=== PATIENT | female | born 1965 | race Caucasian/White ===

== ENCOUNTER → 2024-06-09 | Outpatient (CLI) | payer OTHER ==
[~2024-06-09] MED LIST: LOMAIRA8 MG PO; NAPR220 PO; Phentermine HCl30 MG PO
== END ==
LOC: LAB SHORT 14:55 → LAB 14:55
DX: L02.91 Cutaneous abscess, unspecified (principal)
CPT/HCPCS: 87070; 87077; 87147; 87186; 87205

== ENCOUNTER → 2024-09-30 | Outpatient (CLI) | payer OTHER ==
[~2024-09-30] MED LIST changes: +Acetaminophen325 M1 PO; +GABA300 PO; +HYDR1TAB94 PO; +IBUP600 PO; +IBUP800 PO; +METF500 PO; +MUPIROCIN15 GM; +SKYRIZI150 MG/1 M SQ
== END ==
LOC: LAB SHORT 15:06 → LAB 15:06
DX: M79.672 Pain in left foot (principal)
CPT/HCPCS: 84550

== ENCOUNTER 2024-10-02 07:24 | Day surgery (SDC) | payer OTHER ==
[~2024-10-02] VITALS: Ht 162.6 cm; Wt 84.4 kg
[2024-10-02] VITALS (8 sets, daily range): BP systolic 103–128; BP diastolic 57–67
[~2024-10-02 07:24] MED LIST changes: +CeFAZolin Sodium 2,000 MG in NS 100 ML IV SCH; -HYDR1TAB94 PO; -IBUP800 PO; +Lactated Ringer's 1,000 ML IV SCH
[2024-10-02] MEDS ORDERED: IBUP800 PO (07:38)
[2024-10-02] MEDS ORDERED: FentaNYL Citrate 50 MCG/ML 2 ML Injection ONE (08:03)
[2024-10-02] MEDS ORDERED: propofoL 20 ML IV ONE (08:03)
[2024-10-02] MEDS ORDERED: Rocuronium Bromide 10 MG/ML 5ML Injection IV ONE ×2 (08:05→09:29)
[2024-10-02] MEDS ORDERED: Albuterol 2.5 MG/3 ML VIAL INH PRN (08:25)
[2024-10-02] MEDS ORDERED: Ondansetron HCl 2 MG / ML 2ML Vial IV PRN ×2 (08:25→10:40)
[2024-10-02] MEDS ORDERED: FentaNYL Citrate 50 MCG/ML 2 ML Injection IV PRN ×3 (08:25→10:40)
[2024-10-02] MEDS ORDERED: Droperidol 5 mg/2 ml Vial IV PRN (08:25)
[2024-10-02] MEDS ORDERED: HYDROmorphone HCl/Pf 1MG SYR IV PRN ×2 (08:25→08:30)
[2024-10-02] MEDS ORDERED: Labetalol HCL 5 MG/ML 4ML Injection (Single Dose) IV PRN (08:25)
[2024-10-02] MEDS ORDERED: EpiNEPhrine 1 MG/1 ML 1ML Vial ONE (08:30)
[2024-10-02] MEDS ORDERED: Bupivacaine 0.5% HCl 5 MG/ML 30MLVIAL ONE (08:30)
[2024-10-02] MEDS ORDERED: HydrALAZINE HCl 20 MG / ML 1ML Vial IV PRN (08:30)
[2024-10-02] MEDS ORDERED: ePHEDrine Sulfate 50 MG/ML 1ML Injection IV PRN (08:30)
[2024-10-02] MEDS ORDERED: ePHEDrine Sulfate 50 MG/ML 1ML Injection ONE (09:10)
[2024-10-02] MEDS ORDERED: Dexamethasone Sod Phos 10 MG/ML 1ML VIAL ONE (09:17)
[2024-10-02] MEDS ORDERED: Ondansetron HCl 2 MG / ML 2ML Vial ONE (09:17)
[2024-10-02] MEDS ORDERED: HYDROmorphone HCl/Pf 1MG SYR ONE (10:23)
[2024-10-02] MEDS ORDERED: Sugammadex Sodium 200 MG/2ML SDV (100 MG/ML) ONE (10:24)
[2024-10-02] MEDS ORDERED: Lactated Ringer's 1,000 ML IV SCH (10:40)
[2024-10-02] MEDS ORDERED: HYDROcodone 10-APAP 325 TAB PO PRN (10:40)
[2024-10-02] MEDS ORDERED: Naloxone HCl 0.4MG / ML 1ML Vial IV PRN (10:40)
[2024-10-02] MEDS ORDERED: FLU VACC TS2024-25(6MOS UP)/PF 45 MCG/0.5 ML SYRINGE IM PRN (10:40)
[2024-10-02] MEDS ORDERED: Ketorolac Tromethamine 30mg Vial ONE (10:44)
[2024-10-02] MEDS ORDERED: Acetaminophen 325 MG TABLET PO PRN (10:45)
[2024-10-02] MEDS ORDERED: Simethicone 80 MG Chew PO PRN (10:45)
[2024-10-02] MEDS ORDERED: Ibuprofen 400 MG Tab PO PRN (10:45)
[2024-10-02] MEDS ORDERED: DiphenhydrAMINE HCL 25 MG Cap PO PRN (10:45)
[2024-10-02] MEDS ORDERED: Ketorolac Tromethamine 30mg Vial IV SCH (12:00)
[2024-10-02] MEDS ORDERED: HYDR1TAB94 PO (12:02)
[2024-10-02 13:51] LABS: BASOPHILS ABSOLUTE AUTO 0.02 K/mm3 (0.00-0.23); BASOPHILS PERCENT AUTO 0 % (0-2); EOSINOPHILS PERCENT AUTO 0 % (0-6); Hematocrit 36.6 % (33.0-51.0); Hemoglobin 12.2 g/dL (11.5-16.0); IMMATURE GRAN ABSOLUTE AUTO 0.06 K/mm3 (0.00-0.10); IMMATURE GRAN PERCENT AUTO 1 % (0-1); LYMPHOCYTES ABSOLUTE AUTO 0.78 K/mm3 (0.84-5.20); LYMPHOCYTES PERCENT AUTO 6 % (21-46); MONOCYTES PERCENT AUTO 1 % (4-13); Mean Corpuscular HGB Conc 33.3 g/dL (31.5-36.5); Mean Corpuscular Volume 90 fL (80-100); Mean Platelet Volume 9.9 fL (9.1-12.4); NEUTROPHILS ABSOLUTE AUTO 11.53 K/mm3 (1.96-9.15); NEUTROPHILS PERCENT AUTO 92 % (41-73); Platelet Count 290 K/mm3 (150-400); RDW Coefficient Variation 13.2 % (11.7-14.2); RDW Standard Deviation 43.7 fL (35.1-46.3); Red Blood Cell Count 4.06 M/mm3 (3.80-5.20); White Blood Cell Count 12.49 K/mm3 (4.00-11.30)
--- NOTE | 2024-10-02 14:39 | NUR ---
1420- dcd to home with via w/c in private car
== END 2024-10-02 14:18 | disposition home or self-care (01) ==
LOC: ORSCMMR 07:24 → ORD 07:30 → ORSCMMR 07:30 → ORD 09:30 → BC 11:31 → ORSCMMR 14:18
PROVIDERS: Obstetrics & Gynecology
PROC: 0UT9FZZ Resection of Uterus, Via Natural or Artificial Opening With Percutaneous Endoscopic Assistance (ICD-10-PCS; principal; 2024-10-02 09:00)
PROC: 0UT6FZZ Resection of Left Fallopian Tube, Via Natural or Artificial Opening With Percutaneous Endoscopic Assistance (ICD-10-PCS; principal; 2024-10-02 09:00)
DX: N93.8 Other specified abnormal uterine and vaginal bleeding (principal); Z85.9 Personal history of malignant neoplasm, unspecified; N72 Inflammatory disease of cervix uteri; N84.0 Polyp of corpus uteri; N80.03 Adenomyosis of the uterus; D25.9 Leiomyoma of uterus, unspecified
CPT/HCPCS: 36415; 85025; 86850; 86900; 86901; 88307; A9270; J0171; J0690; J1100; J1171; J1885; J2405; J2704; J3010; J7120

== ENCOUNTER 2024-10-13 16:37 | Inpatient (IN) | payer OTHER ==
[~2024-10-13] VITALS: Ht 162.6 cm; Wt 83.7 kg
[~2024-10-13 16:37] MED LIST changes: -AMOX-CLAV 500-1 EAC5 PO; -BENADRYL25 MG PO; -CORTISONE60 GM TOP; -Calcium Carbon500 MG PO; -OMEP20ER PO; -OXYC5 PO; -VISBIOME 112.51 EACH PO
[2024-10-13 17:10] LABS: BASOPHILS PERCENT AUTO 0 % (0-2); EOSINOPHILS ABSOLUTE AUTO 0.09 K/mm3 (0.00-0.68); EOSINOPHILS PERCENT AUTO 0 % (0-6); Hematocrit 36.4 % (33.0-51.0); Hemoglobin 12.5 g/dL (11.5-16.0); IMMATURE GRAN ABSOLUTE AUTO 0.84 K/mm3 (0.00-0.10); IMMATURE GRAN PERCENT AUTO 4 % (0-1); LYMPHOCYTES ABSOLUTE AUTO 1.64 K/mm3 (0.84-5.20); LYMPHOCYTES PERCENT AUTO 7 % (21-46); MONOCYTES ABSOLUTE AUTO 1.11 K/mm3 (0.16-1.47); MONOCYTES PERCENT AUTO 5 % (4-13); Mean Corpuscular HGB 30.1 pg (26.0-34.0); Mean Corpuscular HGB Conc 34.3 g/dL (31.5-36.5); Mean Corpuscular Volume 88 fL (80-100); Mean Platelet Volume 8.6 fL (9.1-12.4); NEUTROPHILS ABSOLUTE AUTO 19.52 K/mm3 (1.96-9.15); NEUTROPHILS PERCENT AUTO 84 % (41-73); Platelet Count 506 K/mm3 (150-400); RDW Coefficient Variation 14.6 % (11.7-14.2); RDW Standard Deviation 47.4 fL (35.1-46.3); Red Blood Cell Count 4.15 M/mm3 (3.80-5.20)
[2024-10-13 17:35] LABS: Albumin, Blood 2.7 g/dL (3.4-5.0); Albumin/Globulin Ratio 0.5 (0.8-1.8); Bilirubin, Total 1.1 mg/dL (0.1-1.0); Bun/Creatinine Ratio 25.4 (12.0-20.0); Calcium, Blood 10.3 mg/dL (8.5-10.1); Creatinine, Blood 1.18 mg/dL (0.40-1.00); Globulin, Blood 5.5 g/dL (2.2-4.0); Total Protein, Blood 8.2 g/dL (6.4-8.2)
[2024-10-13] MEDS ORDERED: AMOX-CLAV 500-1 EAC5 PO (20:35)
[2024-10-13] MEDS ORDERED: NS 1,000 ML IV SCH ×2 (22:00→22:05)
[2024-10-13] MEDS ORDERED: FLU VACC TS2024-25(6MOS UP)/PF 45 MCG/0.5 ML SYRINGE IM ONE (22:00)
[2024-10-13] MEDS ORDERED: Ondansetron HCl 2 MG / ML 2ML Vial IV PRN (22:05)
[2024-10-13] MEDS ORDERED: NS 1,000 ML IV ONE ×2 (22:29→23:00)
[2024-10-13] MEDS ORDERED: Cefepime HCl 2,000 MG in NS 100 ML IV SCH (22:40)
[2024-10-13] MEDS ORDERED: Potassium Chloride 20 MEQ TabCR PO ONE (23:00)
--- NOTE | 2024-10-13 23:15 | NUR ---
ARRIVAL NOTE PT ARRIVED TO UNIT VIA WHEELCHAIR. A&0 x4. PT ABLE TO AMB IND c FWW. BASELINE IND WITHOUT ASSISTIVE DEVICES. PT UNABLE TO BEAR WEIGHT ON LLE R/T ABSCESS. VSS. TOLATING ORALS. AT BEDSIDE. ORIENTED TO ROOM, CALL LIGHT IN REACH, BED IN LOWEST POSITION.
[2024-10-13 23:22] VITALS: BP 131/65
[2024-10-13 23:23] LABS: Bicarbonate Venous 19.2 mmol/L (24.0-30.0); PCO2 Venous 38.5 mmHg (38-42); pH Blood Venous 7.33 (7.34-7.37)
[2024-10-13] MEDS ORDERED: Vancomycin HCL 1,500 MG in NS 250 ML IV ONE (23:45)
--- NOTE | 2024-10-14 00:07 | NUR ---
DR CONSULT DR CONSULTED R/T PT PAIN. PT REPORTS PAIN TO LLE R/T CELLULITIS. PAIN MEDS ORDERED PER EMAR.
[2024-10-14] MEDS ORDERED: Acetaminophen 325 MG TABLET PO PRN (00:10)
[2024-10-14] MEDS ORDERED: Ibuprofen 400 MG Tab PO PRN (00:10)
[2024-10-14 05:24] VITALS: BP 124/65
[2024-10-14 05:40] LABS: BASOPHILS ABSOLUTE AUTO 0.11 K/mm3 (0.00-0.23); BASOPHILS PERCENT AUTO 1 % (0-2); EOSINOPHILS ABSOLUTE AUTO 0.13 K/mm3 (0.00-0.68); EOSINOPHILS PERCENT AUTO 1 % (0-6); Hematocrit 29.3 % (33.0-51.0); Hemoglobin 9.9 g/dL (11.5-16.0); IMMATURE GRAN ABSOLUTE AUTO 0.68 K/mm3 (0.00-0.10); IMMATURE GRAN PERCENT AUTO 4 % (0-1); LYMPHOCYTES ABSOLUTE AUTO 2.05 K/mm3 (0.84-5.20); LYMPHOCYTES PERCENT AUTO 11 % (21-46); MONOCYTES ABSOLUTE AUTO 1.51 K/mm3 (0.16-1.47); MONOCYTES PERCENT AUTO 8 % (4-13); Mean Corpuscular HGB 29.7 pg (26.0-34.0); Mean Corpuscular HGB Conc 33.8 g/dL (31.5-36.5); Mean Corpuscular Volume 88 fL (80-100); Mean Platelet Volume 8.8 fL (9.1-12.4); NEUTROPHILS ABSOLUTE AUTO 13.93 K/mm3 (1.96-9.15); NEUTROPHILS PERCENT AUTO 76 % (41-73); Platelet Count 418 K/mm3 (150-400); RDW Coefficient Variation 14.9 % (11.7-14.2); RDW Standard Deviation 48.5 fL (35.1-46.3); Red Blood Cell Count 3.33 M/mm3 (3.80-5.20); White Blood Cell Count 18.41 K/mm3 (4.00-11.30)
[2024-10-14 05:54] LABS: International Normalized Ratio 1.1; Prothrombin Time Results 11.7 Sec (9.7-11.5)
[2024-10-14 06:19] LABS: Albumin, Blood 1.9 g/dL (3.4-5.0); Albumin/Globulin Ratio 0.4 (0.8-1.8); Bilirubin, Total 0.6 mg/dL (0.1-1.0); Calcium, Blood 8.8 mg/dL (8.5-10.1); Creatinine, Blood 0.87 mg/dL (0.40-1.00); Globulin, Blood 4.3 g/dL (2.2-4.0); Potassium, Blood 3.4 mmol/L (3.5-5.5)
[2024-10-14 06:21] LABS: Total Protein, Blood 6.2 g/dL (6.4-8.2)
[2024-10-14 06:33] LABS: U Amphetamine Screen Not Detected; U Barbituate Screen Not Detected; U Benzodiazapine Screen Not Detected; U Buprenorphine Screen Not Detected; U Cannabinoids Screen Not Detected; U Cocaine Screen Not Detected; U Methadone Screen Not Detected; U Methamphetamine Screen Not Detected; U Opiates Screen Not Detected; U Oxycodone Screen Not Detected; U Phencyclidine Screen Not Detected
[2024-10-14 07:22] VITALS: BP 105/67
--- NOTE | 2024-10-14 08:11 | NUR ---
SHIFT SUMMARY S/P L FOOT CELLULITIS c ABSCESS. NO ACUTE CHANGES OVERNIGHT. PT NPO. VOIDING USING FWW c 1 PERSON ASSIST R/T CORD MANAGEMENT. IV FLUIDS/ABX INFUSING PER EMAR. PT REPORTS PAIN TO L FOOT. SITE REMAINS UNCHANGED T/O NIGHT - DRESSING C/D/I c EXTREMITY ELEVATED. ANTICIPATED SURGERY LATER TODAY. CALL LIGHT IN REACH, BED IN LOWEST POSITION, REPORT GIVEN TO DAY RN.
[2024-10-14] MEDS ORDERED: OxyCODONE HCL 5 MG TAB PO PRN (08:25)
[2024-10-14] MEDS ORDERED: Potassium Chloride 10 Meq Tablet SA PO ONE (09:00)
[2024-10-14] MEDS ORDERED: Lactobacil 2-S.Thermo-Bifido 1 1 Cap PO SCH (09:00)
[2024-10-14] MEDS ORDERED: Vancomycin HCL 750 MG in NS 250 ML IV SCH (12:00)
[2024-10-14 14:10] VITALS: BP 125/66
[2024-10-14 14:43] VITALS: BP 124/67
[2024-10-14] MEDS ORDERED: Morphine Sulfate 4 MG/1 ML Injection IV PRN (15:30)
--- NOTE | 2024-10-14 15:49 | NUR ---
SHIFT SUMMARY PT PAIN HAS INCREASED DURING SHIFT. REQUIRED IV PAIN MEDICATIONS TO MANAGE, PT HAS REMAINED NPO DURING SHIFT, LEAVING FOR DAY SURGERY AT THIS TIME. PLAN IS FOR WASHOUT OF FOOT TONIGHT. PT EXCITED TO HAVE PROCEDURE AT THIS TIME. FOOT REMAINS RED AND HOT TO TOUCH. IV ABX INFUSING PER EMAR.
[2024-10-14] MEDS ORDERED: Lactated Ringer's 1,000 ML IV SCH (16:05)
[2024-10-14 19:26] VITALS: BP 122/62
[2024-10-14] MEDS ORDERED: Bupivacaine 0.5% HCl 5 MG/ML 30MLVIAL ONE (22:30)
[2024-10-14] MEDS ORDERED: Lidocaine HCl 1% 30 ML SDV ONE (22:30)
--- NOTE | 2024-10-14 23:30 | NUR ---
PT TO OR
[2024-10-14] MEDS ORDERED: propofoL 20 ML IV ONE (23:39)
[2024-10-14] MEDS ORDERED: FentaNYL Citrate 50 MCG/ML 2 ML Injection ONE (23:39)
[2024-10-14] MEDS ORDERED: Ondansetron HCl 2 MG / ML 2ML Vial ONE (23:46)
[2024-10-14] MEDS ORDERED: Dexamethasone Sod Phos 10 MG/ML 1ML VIAL ONE (23:46)
[2024-10-14] MEDS ORDERED: Ketorolac Tromethamine 30mg Vial ONE (23:55)
[2024-10-15] VITALS (22 sets, daily range): BP systolic 115–156; BP diastolic 60–90
--- NOTE | 2024-10-15 00:11 | NUR ---
10/15/24 0011 Claudine Christy PATIENT ON SCHEDULED ANTIBIOTICS,NO INTRAOPERATIVE ANTIBIOTICS GIVEN.
[2024-10-15] MEDS ORDERED: FentaNYL Citrate 50 MCG/ML 2 ML Injection ONE (00:46)
[2024-10-15] MEDS ORDERED: Labetalol HCL 5 MG/ML 4ML Injection (Single Dose) ONE (00:54)
[2024-10-15] MEDS ORDERED: HYDROmorphone HCl/Pf 1MG SYR ONE (00:54)
--- NOTE | 2024-10-15 01:57 | NUR ---
ARRIVAL TO UNIT PT ARRIVED IN BED FROM PACU. PT ALERT AND AWAKE, ABLE TO ANSWER QUESTIONS. PT TOLERATING WATER AND HAVING NO PAIN. DRESSING TO L FOOT IS JAKOB AND C/D/I. PT ABLE TO WIGGLE TOES AND HAS GOOD CAP REFILL. VSS. NO OTHER CONCERNS AT THIS TIME, CALL LIGHT WITHIN REACH
[2024-10-15 05:24] LABS: BASOPHILS ABSOLUTE AUTO 0.12 K/mm3 (0.00-0.23); BASOPHILS PERCENT AUTO 1 % (0-2); EOSINOPHILS ABSOLUTE AUTO 0.01 K/mm3 (0.00-0.68); EOSINOPHILS PERCENT AUTO 0 % (0-6); Hematocrit 29.2 % (33.0-51.0); Hemoglobin 9.8 g/dL (11.5-16.0); IMMATURE GRAN ABSOLUTE AUTO 1.09 K/mm3 (0.00-0.10); IMMATURE GRAN PERCENT AUTO 6 % (0-1); LYMPHOCYTES PERCENT AUTO 7 % (21-46); MONOCYTES ABSOLUTE AUTO 0.42 K/mm3 (0.16-1.47); MONOCYTES PERCENT AUTO 2 % (4-13); Mean Corpuscular HGB 29.5 pg (26.0-34.0); Mean Corpuscular HGB Conc 33.6 g/dL (31.5-36.5); Mean Corpuscular Volume 88 fL (80-100); Mean Platelet Volume 8.8 fL (9.1-12.4); NEUTROPHILS ABSOLUTE AUTO 15.38 K/mm3 (1.96-9.15); NEUTROPHILS PERCENT AUTO 84 % (41-73); Platelet Count 437 K/mm3 (150-400); RDW Standard Deviation 48.7 fL (35.1-46.3); Red Blood Cell Count 3.32 M/mm3 (3.80-5.20); White Blood Cell Count 18.32 K/mm3 (4.00-11.30)
--- NOTE | 2024-10-15 05:46 | NUR ---
SHIFT SUMMARY POD 0 I&D L FOOT PT ABLE TO SLEEP AFTER COMING BACK FROM SURGERY. TOLERATING PO INTAKE, VOIDING. PAIN MANAGED PER EMAR. JAKOB DRESSING TO L FOOT IS C/D/I. PT ABLE TO FEEL TOUCH AND WIGGLE TOES. VSS. NO OTHER CONCERNS AT THIS TIME, CALL LIGHT WITHIN REACH
[2024-10-15 05:52] LABS: Albumin, Blood 1.9 g/dL (3.4-5.0); Albumin/Globulin Ratio 0.4 (0.8-1.8); Bilirubin, Total 0.7 mg/dL (0.1-1.0); Bun/Creatinine Ratio 24.9 (12.0-20.0); Calcium, Blood 9.1 mg/dL (8.5-10.1); Creatinine, Blood 0.76 mg/dL (0.40-1.00); Globulin, Blood 4.6 g/dL (2.2-4.0); Potassium, Blood 3.5 mmol/L (3.5-5.5); Total Protein, Blood 6.5 g/dL (6.4-8.2)
[2024-10-15 06:32] LABS: BAND PERCENT MAN 4 % (0-8); BASOPHILS PERCENT MAN 0 % (0-2); EOSINOPHILS PERCENT MAN 0 % (0-6); LYMPHOCYTES ABSOLUTE MAN 0.91 K/mm3 (0.84-5.20); LYMPHOCYTES PERCENT MAN 5 % (21-46); METAMYELOCYTE ABSOLUTE MAN 0.54 K/mm3 (0.00-0.00); METAMYELOCYTE PERCENT MAN 3 % (0-0); MONOCYTES ABSOLUTE MAN 0.91 K/mm3 (0.16-1.47); MONOCYTES PERCENT MAN 5 % (4-13); NEUTROPHILS ABSOLUTE MAN 15.93 K/mm3 (1.96-9.15); SEG NEUTROPHILS PERCENT MAN 83 % (41-73); TOTAL CELLS COUNTED 100
[2024-10-15] MEDS ORDERED: Insulin Human Lispro 100 Units/ML 3ML Syringe SC SCH (11:51)
[2024-10-15 12:21] LABS: Vancomycin, Trough 9.6 ug/mL (5.0-10.0)
[2024-10-15] MEDS ORDERED: Vancomycin HCL 1,000 MG in NS 250 ML IV SCH (13:00)
[2024-10-15] MEDS ORDERED: OMEP20ER PO (15:29)
[2024-10-15] MEDS ORDERED: Calcium Carbonate 500 MG Tab Chew PO PRN (15:35)
[2024-10-15] MEDS ORDERED: Cefepime HCl 2,000 MG in NS 100 ML IV SCH (16:30)
--- NOTE | 2024-10-15 19:15 | NUR ---
SHIFT SUMMARY POD0 L FOOT I&D, A/OX4, VSS, TOLERATING PO, ABLE TO AMBULATE WITH SBA, PAIN WELL MANAGED PER EMAR, IV ABX ORDERD, PLAN FOR POSSIBLE 2ND I&D TOMORROW SO SHE WILL BE CLEAR LIQUID FOR BREAKFAST. NO ACUTE EVENTS THIS SHIFT, CALL LIGHT IN REACH.
--- NOTE | 2024-10-16 04:16 | NUR ---
SHIFT SUMMARY POD1 I&D LEFT FOOT. NO ACUTE CHANGES OVERNIGHT. PAIN MANAGED USING NPIS AND PER EMAR. DRESSING REMAINED IN PLACE PER ORDERS. REDNESS EXTENDING OUT OF DRESSING TO SONG OUTLINED WITH SKIN MARKER, UNCHANGED OVERNIGHT. DISTAL CMS INTACT. AFFECTED EXTREMITY ELEVATED WITH PILLOWS WHILE IN BED. PT TOLERATED PO INTAKE, VOIDED WITHOUT DIFFICULTY. NPO AT MIDNIGHT FOR POTENTIAL SURGERY IN MORNING. A&OX4. PLEASANT & COOPERATIVE WITH CARES. PT VOICED UNDERSTANDING OF PLAN OF CARES; DENIES QUESTIONS/CONCERNS AT THIS TIME.
[2024-10-16 04:48] LABS: Hemoglobin 9.1 g/dL (11.5-16.0); Mean Corpuscular HGB 29.7 pg (26.0-34.0); Mean Corpuscular HGB Conc 33.7 g/dL (31.5-36.5); Mean Corpuscular Volume 88 fL (80-100); Mean Platelet Volume 8.6 fL (9.1-12.4); Platelet Count 432 K/mm3 (150-400); RDW Coefficient Variation 14.8 % (11.7-14.2); RDW Standard Deviation 48.3 fL (35.1-46.3); Red Blood Cell Count 3.06 M/mm3 (3.80-5.20); White Blood Cell Count 16.17 K/mm3 (4.00-11.30)
[2024-10-16 04:52] VITALS: BP 124/64
[2024-10-16 05:20] LABS: Albumin, Blood 1.7 g/dL (3.4-5.0); Albumin/Globulin Ratio 0.4 (0.8-1.8); Bilirubin, Total 0.3 mg/dL (0.1-1.0); Bun/Creatinine Ratio 40.2 (12.0-20.0); Calcium, Blood 8.8 mg/dL (8.5-10.1); Creatinine, Blood 0.52 mg/dL (0.40-1.00); Globulin, Blood 4.3 g/dL (2.2-4.0); Potassium, Blood 3.5 mmol/L (3.5-5.5)
[2024-10-16 05:48] LABS: BAND PERCENT MAN 3 % (0-8); BASOPHILS PERCENT MAN 0 % (0-2); EOSINOPHILS PERCENT MAN 0 % (0-6); LYMPHOCYTES ABSOLUTE MAN 2.91 K/mm3 (0.84-5.20); LYMPHOCYTES PERCENT MAN 18 % (21-46); MONOCYTES PERCENT MAN 5 % (4-13); MYELOCYTE ABSOLUTE MAN 0.16 K/mm3 (0.00-0.00); MYELOCYTE PERCENT MAN 1 % (0-0); NEUTROPHILS ABSOLUTE MAN 12.28 K/mm3 (1.96-9.15); SEG NEUTROPHILS PERCENT MAN 73 % (41-73); TOTAL CELLS COUNTED 100
[2024-10-16 07:20] VITALS: BP 127/67
--- NOTE | 2024-10-16 12:45 | NUR ---
DR SHAH CALLED, GIVING PT OPTION TO CHANGE SURGERY TO TOMORROW DUE TO OR SCHEDULE BEING VERY FULL. PT WANTS TO DELAY UNTIL TOMORROW. DIET CHANGED TO REG DIET. PT WILL BE NPO AFTER MID NIGHT.
[2024-10-16 14:38] VITALS: BP 119/66
--- NOTE | 2024-10-16 15:52 | NUR ---
ARRIVAL NOTE PT A/OX4, NO PAIN OR N/V. LAP SITES X3 TO ABD C/D/I. PT'S TO BEDSIDE. PT AND SPOUSE ORIENTED TO ROOM. PT PROVIDED WITH WATER, SNACK AND WARM BLANKET. CALL LIGHT IN REACH, BED IN LOWEST POSITION, AND SIDE RAILS UP.
[2024-10-16] MEDS ORDERED: DiphenhydrAMINE HCl 50 MG/ML 1ML Vial IV PRN (18:15)
[2024-10-16 19:38] VITALS: BP 125/68
[2024-10-17] VITALS (12 sets, daily range): BP systolic 103–139; BP diastolic 60–87
--- NOTE | 2024-10-17 03:59 | NUR ---
SHIFT SUMMARY POD3 I&D LEFT FOOT. DRESSING REMAINS C/D/I, NO DRAINAGE NOTED ON OUTERMOST BANDAGE. PT REPORTS FULL SENSATION IN LEFT FOOT, BRISK CAP REFILL. NO REDNESS NOTED WITHIN OUTLINED AREA ON LLE. VSS. PT SLEPT WELL T/O THE NIGHT. MEDICATED FOR PAIN PRN W/OXY AND MORPHINE. PT REPORTS TOLLERABLE RELIEF. PT ABLE TO GET OOB TO BSC W/ 1P SBA. ABLE TO MAINTAIN NWB STATUS ON LLE. PT HAS BEEN NPO SINCE 0000 IN ANTICIPATION FOR ANOTHER I&D TODAY. OVERALL, NO ACUTE FINDINGS. THE PATIENT IS CURRENTLY RESTING, IN NO DISTRESS, CALL LIGHT IN REACH
[2024-10-17 05:46] LABS: Hematocrit 27.8 % (33.0-51.0); Hemoglobin 9.3 g/dL (11.5-16.0); Mean Corpuscular HGB 30.2 pg (26.0-34.0); Mean Corpuscular HGB Conc 33.5 g/dL (31.5-36.5); Mean Corpuscular Volume 90 fL (80-100); Mean Platelet Volume 8.4 fL (9.1-12.4); Platelet Count 434 K/mm3 (150-400); RDW Standard Deviation 50.4 fL (35.1-46.3); Red Blood Cell Count 3.08 M/mm3 (3.80-5.20); White Blood Cell Count 12.38 K/mm3 (4.00-11.30)
[2024-10-17 05:51] LABS: BAND PERCENT MAN 5 % (0-8); BASOPHILS ABSOLUTE MAN 0.12 K/mm3 (0.00-0.23); BASOPHILS PERCENT MAN 1 % (0-2); EOSINOPHILS ABSOLUTE MAN 0.12 K/mm3 (0.00-0.68); EOSINOPHILS PERCENT MAN 1 % (0-6); LYMPHOCYTES % ATYPICAL MANUAL 1 % (0-0); LYMPHOCYTES ABSOLUTE MAN 3.59 K/mm3 (0.84-5.20); LYMPHOCYTES PERCENT MAN 28 % (21-46); METAMYELOCYTE ABSOLUTE MAN 0.37 K/mm3 (0.00-0.00); METAMYELOCYTE PERCENT MAN 3 % (0-0); MONOCYTES ABSOLUTE MAN 0.99 K/mm3 (0.16-1.47); MONOCYTES PERCENT MAN 8 % (4-13); MYELOCYTE ABSOLUTE MAN 0.12 K/mm3 (0.00-0.00); MYELOCYTE PERCENT MAN 1 % (0-0); NEUTROPHILS ABSOLUTE MAN 7.05 K/mm3 (1.96-9.15); SEG NEUTROPHILS PERCENT MAN 52 % (41-73); TOTAL CELLS COUNTED 100
[2024-10-17 06:02] LABS: Albumin, Blood 1.7 g/dL (3.4-5.0); Albumin/Globulin Ratio 0.4 (0.8-1.8); Bilirubin, Total 0.3 mg/dL (0.1-1.0); Bun/Creatinine Ratio 29.5 (12.0-20.0); Calcium, Blood 8.3 mg/dL (8.5-10.1); Creatinine, Blood 0.58 mg/dL (0.40-1.00); Globulin, Blood 3.8 g/dL (2.2-4.0); Potassium, Blood 3.4 mmol/L (3.5-5.5); Total Protein, Blood 5.5 g/dL (6.4-8.2)
[2024-10-17] MEDS ORDERED: Bupivacaine 0.5% HCl 5 MG/ML 30MLVIAL ONE (07:23)
[2024-10-17] MEDS ORDERED: Lidocaine HCl 1% 30 ML SDV ONE (07:23)
[2024-10-17] MEDS ORDERED: propofoL 20 ML IV ONE (07:27)
--- NOTE | 2024-10-17 07:40 | NUR ---
PT TO DAY SURG AT 0740 HANDED TRANSPORT ABX.
[2024-10-17] MEDS ORDERED: propofoL 50 ML IV ONE (07:51)
[2024-10-17] MEDS ORDERED: FentaNYL Citrate 50 MCG/ML 2 ML Injection ONE (08:39)
[2024-10-17] MEDS ORDERED: DiphenhydrAMINE HCL 25 MG Cap PO PRN (10:30)
[2024-10-17 12:14] LABS: Vancomycin, Trough 14.2 ug/mL (5.0-10.0)
--- NOTE | 2024-10-17 12:47 | NUR ---
SPOKE TO DR SHAH, WE TO PREPARE FOR WOUND VAC ON SATURDAY. SPOKE TO CARE MGMT. THEY AWARE, WILL START PROCESS. DR SHAH OKAYED STOP IVF, PT EATING.
[2024-10-17] MEDS ORDERED: Vancomycin HCL 1,250 MG in NS 250 ML IV SCH (13:00)
--- NOTE | 2024-10-17 18:10 | NUR ---
RECEIVED BEDSIDE REPORT. PT IN BED. LLE ELEVATED ON PILLOWS. NO NEEDS AT THIS TIME. WILL CONTINUE TO PROVIDE CARE T/O SHIFT. CALL LT IN REACH.
--- NOTE | 2024-10-17 19:18 | NUR ---
received pt alert and oriented vss, minimal pain at this time to left foot wound. pt is appropriate and makes needs known, will cont to monitor, pt will need measurments for wound vac and picc placment before discharge.
--- NOTE | 2024-10-17 22:13 | NUR ---
PT RESTING QUIETLY. CALL LT IN REACH.
--- NOTE | 2024-10-17 22:41 | NUR ---
PAIN MED GIVEN FOR 7/10 LEFT FOOT PAIN. NO OTHER NEEDS. CALL LT IN REACH.
--- NOTE | 2024-10-18 01:40 | NUR ---
PT MEDICATED FOR PAIN AND IS NOW RESTING QUIETLY. KURT INFUSING. CALL LT IN REACH.
--- NOTE | 2024-10-18 06:19 | NUR ---
SHIFT SUMMARY: ALERT AND ORIENTED, ABLE TO STATE NEEDS APPROPRIATELY. MEDICATED FOUR TIMES FOR LEFT FOOT PAIN WITH GOOD PAIN RELIEF. PT RESTED WELL. ON RA. ABLE TO TRANSFER FROM BED TO BSC WITHOUT DIFFICULTY. SCHEDULED IV ABX GIVEN T/O SHIFT. NO ACUTE CHANGES. WILL CONTINUE TO PROVIDE CARE UNTIL SHIFT REPORT TO ONCOMING NURSE. CALL LT IN REACH.
[2024-10-18 06:26] LABS: Hematocrit 30.1 % (33.0-51.0); Hemoglobin 10.1 g/dL (11.5-16.0); Mean Corpuscular HGB 30.1 pg (26.0-34.0); Mean Corpuscular HGB Conc 33.6 g/dL (31.5-36.5); Mean Corpuscular Volume 90 fL (80-100); Mean Platelet Volume 8.5 fL (9.1-12.4); Platelet Count 495 K/mm3 (150-400); RDW Coefficient Variation 14.2 % (11.7-14.2); RDW Standard Deviation 46.3 fL (35.1-46.3); Red Blood Cell Count 3.35 M/mm3 (3.80-5.20); White Blood Cell Count 13.25 K/mm3 (4.00-11.30)
[2024-10-18 06:45] LABS: Albumin/Globulin Ratio 0.5 (0.8-1.8); Bilirubin, Total 0.4 mg/dL (0.1-1.0); Bun/Creatinine Ratio 22.9 (12.0-20.0); Calcium, Blood 8.6 mg/dL (8.5-10.1); Creatinine, Blood 0.61 mg/dL (0.40-1.00); Globulin, Blood 4.1 g/dL (2.2-4.0); Potassium, Blood 3.5 mmol/L (3.5-5.5); Total Protein, Blood 6.1 g/dL (6.4-8.2)
[2024-10-18 06:51] LABS: BASOPHILS ABSOLUTE MAN 0.13 K/mm3 (0.00-0.23); BASOPHILS PERCENT MAN 1 % (0-2); EOSINOPHILS ABSOLUTE MAN 0.13 K/mm3 (0.00-0.68); EOSINOPHILS PERCENT MAN 1 % (0-6); LYMPHOCYTES ABSOLUTE MAN 3.04 K/mm3 (0.84-5.20); LYMPHOCYTES PERCENT MAN 23 % (21-46); METAMYELOCYTE ABSOLUTE MAN 0.26 K/mm3 (0.00-0.00); METAMYELOCYTE PERCENT MAN 2 % (0-0); MONOCYTES ABSOLUTE MAN 1.45 K/mm3 (0.16-1.47); MONOCYTES PERCENT MAN 11 % (4-13); MYELOCYTE ABSOLUTE MAN 0.13 K/mm3 (0.00-0.00); MYELOCYTE PERCENT MAN 1 % (0-0); NEUTROPHILS ABSOLUTE MAN 8.08 K/mm3 (1.96-9.15); SEG NEUTROPHILS PERCENT MAN 61 % (41-73); TOTAL CELLS COUNTED 100
[2024-10-18] MEDS ORDERED: Potassium Chloride 20 MEQ TabCR PO ONE ×2 (09:00→12:00)
[2024-10-18] MEDS ORDERED: Heparin Sodium,Porcine 5,000 UNIT/0.5 ML SDV SC SCH (16:00)
[2024-10-18 16:23] VITALS: BP 113/61
[2024-10-18] MEDS ORDERED: Heparin Sodium 5000 Units/ML 1ML MDV SC SCH (17:00)
[2024-10-18 19:25] VITALS: BP 112/63
[2024-10-18] MEDS ORDERED: Morphine Sulfate 4 MG/1 ML Injection IV PRN (19:25)
--- NOTE | 2024-10-18 19:26 | NUR ---
report received verified. pt did very well today minimal pain and was appropriate with care. vss, no fever no distress, wound change and measured in anticipation for wound vac tomorrow and possible picc. new iv to left forearm and antibiotic treatment as planned. pt call light within reach and can make needs known.
--- NOTE | 2024-10-18 19:28 | NUR ---
wound measurments length 5.2cm, width 4.9cm, diagonal 7cm, depth 5-6mm
[2024-10-19 00:20] LABS: Hematocrit 32.3 % (33.0-51.0); Hemoglobin 10.9 g/dL (11.5-16.0); Mean Corpuscular HGB 29.9 pg (26.0-34.0); Mean Corpuscular HGB Conc 33.7 g/dL (31.5-36.5); Mean Corpuscular Volume 89 fL (80-100); Mean Platelet Volume 8.4 fL (9.1-12.4); Platelet Count 505 K/mm3 (150-400); RDW Coefficient Variation 13.5 % (11.7-14.2); Red Blood Cell Count 3.64 M/mm3 (3.80-5.20); White Blood Cell Count 13.75 K/mm3 (4.00-11.30)
[2024-10-19 00:35] LABS: Bun/Creatinine Ratio 31.5 (12.0-20.0); C-REACTIVE PROTEIN, EXT RANGE 3.89 mg/dL (0.000-0.300); Calcium, Blood 9.3 mg/dL (8.5-10.1); Creatinine, Blood 0.57 mg/dL (0.40-1.00)
[2024-10-19 00:37] LABS: Vancomycin, Trough 15.3 ug/mL (5.0-10.0)
[2024-10-19 00:38] LABS: BAND PERCENT MAN 1 % (0-8); BASOPHILS ABSOLUTE MAN 0.13 K/mm3 (0.00-0.23); BASOPHILS PERCENT MAN 1 % (0-2); EOSINOPHILS ABSOLUTE MAN 0.27 K/mm3 (0.00-0.68); EOSINOPHILS PERCENT MAN 2 % (0-6); LYMPHOCYTES ABSOLUTE MAN 3.71 K/mm3 (0.84-5.20); LYMPHOCYTES PERCENT MAN 27 % (21-46); MONOCYTES ABSOLUTE MAN 0.82 K/mm3 (0.16-1.47); MONOCYTES PERCENT MAN 6 % (4-13); MYELOCYTE ABSOLUTE MAN 0.13 K/mm3 (0.00-0.00); MYELOCYTE PERCENT MAN 1 % (0-0); NEUTROPHILS ABSOLUTE MAN 8.66 K/mm3 (1.96-9.15); SEG NEUTROPHILS PERCENT MAN 62 % (41-73); TOTAL CELLS COUNTED 100
[2024-10-19] MEDS ORDERED: NS 250 ML IV PRN (00:45)
[2024-10-19 02:35] VITALS: BP 103/54
--- NOTE | 2024-10-19 06:19 | NUR ---
SHIFT SUMMARY AT START OF SHIFT, PT SITTING IN HER BED WITH TV ON. PT IS VERY PLEASANT AND HAS BEEN COOPERATIVE WITH CARE. PT MEDICATED FOR PAIN WITH ORAL MEDS, THIS WAS NOT ENOUGH TO COVER THE PAIN. PT MEDICATED WITH IV PAIN MEDS, AND WAS ABLE TO RELAX AND SLEEP COMFORTABLY. 0225, PT IV SITE FEELING LIKE IT'S "PINCHING". ASSESSING THE AREA, THERE WAS COBAN AROUND IV SITE, PUSHING CATHETER END INTO SKIN. REMOVED AND RELOCATED COBAN, AND PT STATED IT FELT "MUCH BETTER." 0445, PT MEDICATED FOR PAIN LEVEL 6/10. IV DISCONNECTED AND SALINE LOCKED.
[2024-10-19 07:22] VITALS: BP 110/60
[2024-10-19] MEDS ORDERED: NS IV SCH (13:00)
[2024-10-19] MEDS ORDERED: DAPTOMYCIN IV SCH (13:00)
[2024-10-19 15:29] VITALS: BP 114/67
[2024-10-19 19:24] VITALS: BP 108/66
--- NOTE | 2024-10-19 19:26 | NUR ---
report received verified pt quietly laying in bed. pt makes needs known and uses call light appropriatly. family at bedside. Dr leonard in today to do dressing change, no wound vac done because proper paperwork was unable to be processed from our side, wound vac to be placed tomorrow along with PICC line and possible discharge Saturday. 1729 i entered room and pt family enc pt to show me rashed legs, i informed md and cream was ordered. pt said she did not tell or myself because of her modesty, she now understands she needs to let us know if there are any additional issues. will cont to monitor
[2024-10-19] MEDS ORDERED: Hydrocortisone 1% Cream 30 gm TOP SCH (21:00)
[2024-10-20 02:51] VITALS: BP 111/60
[2024-10-20 05:05] LABS: BASOPHILS ABSOLUTE AUTO 0.09 K/mm3 (0.00-0.23); BASOPHILS PERCENT AUTO 1 % (0-2); EOSINOPHILS PERCENT AUTO 3 % (0-6); Hematocrit 32.8 % (33.0-51.0); Hemoglobin 11.2 g/dL (11.5-16.0); IMMATURE GRAN ABSOLUTE AUTO 0.84 K/mm3 (0.00-0.10); IMMATURE GRAN PERCENT AUTO 6 % (0-1); LYMPHOCYTES ABSOLUTE AUTO 3.58 K/mm3 (0.84-5.20); LYMPHOCYTES PERCENT AUTO 27 % (21-46); MONOCYTES ABSOLUTE AUTO 1.13 K/mm3 (0.16-1.47); MONOCYTES PERCENT AUTO 9 % (4-13); Mean Corpuscular HGB 30.1 pg (26.0-34.0); Mean Corpuscular HGB Conc 34.1 g/dL (31.5-36.5); Mean Corpuscular Volume 88 fL (80-100); Mean Platelet Volume 8.8 fL (9.1-12.4); NEUTROPHILS PERCENT AUTO 54 % (41-73); Platelet Count 544 K/mm3 (150-400); RDW Coefficient Variation 13.3 % (11.7-14.2); RDW Standard Deviation 42.8 fL (35.1-46.3); Red Blood Cell Count 3.72 M/mm3 (3.80-5.20); White Blood Cell Count 13.14 K/mm3 (4.00-11.30)
[2024-10-20 05:59] LABS: BAND PERCENT MAN 1 % (0-8); BASOPHILS ABSOLUTE MAN 0.13 K/mm3 (0.00-0.23); BASOPHILS PERCENT MAN 1 % (0-2); EOSINOPHILS ABSOLUTE MAN 0.39 K/mm3 (0.00-0.68); EOSINOPHILS PERCENT MAN 3 % (0-6); LYMPHOCYTES ABSOLUTE MAN 4.07 K/mm3 (0.84-5.20); LYMPHOCYTES PERCENT MAN 31 % (21-46); MONOCYTES ABSOLUTE MAN 0.78 K/mm3 (0.16-1.47); MONOCYTES PERCENT MAN 6 % (4-13); MYELOCYTE ABSOLUTE MAN 0.26 K/mm3 (0.00-0.00); MYELOCYTE PERCENT MAN 2 % (0-0); NEUTROPHILS ABSOLUTE MAN 7.48 K/mm3 (1.96-9.15); SEG NEUTROPHILS PERCENT MAN 56 % (41-73); TOTAL CELLS COUNTED 100
[2024-10-20 07:27] VITALS: BP 117/63
[2024-10-20] MEDS ORDERED: DAPTOMYCIN IV SCH (13:00)
[2024-10-20] MEDS ORDERED: NS IV SCH (13:00)
[2024-10-20 15:55] VITALS: BP 114/70
--- NOTE | 2024-10-20 18:24 | NUR ---
SHIFT SUMMARY A&OX4, COOPERATIVE WITH CARE. PICC LINE PLACED TODAY. WOUND VAC ON LEFT FOOT PLACED TODAY WITHOUT LEAKING. PAIN 8/ T/O SHIFT AND MEDICATED PER EMAR. PLAN FOR DISCHARGE TOMORROW ONCE INSURANCE AUTHORIZATION FOR ERICA IS COMPLETED. FAMILY AT BEDSIDE ALL SHIFT. NO ACUTE EVENTS NOTED. CURRENTY EATING DINNER. CALL LIGHT WITHIN REACH.
--- NOTE | 2024-10-20 18:30 | NUR ---
WOUND VAC PLACED OLD DRESSING REMOVED. LARGE AMOUNT OF SEROSANGUINOUS DRAINAGE NOTED. HORN SLOUGH NOTED WITHIN THE PERIMETER OF THE WOUND BED. CIRCUMFERENTIAL UNDERMINING NOTED. TENDON PRESENT. WOUND CLEANSED WITH CLEANSER AND NS. PATTED DRY WITH STERIL GAUZE. MEPITEL PLACED IN THE WOUND BED OVER THE EXPOSED TENDON. SKIN PREP AND DRAPING APPLIED TO SURROUNDING SKIN. 1 PIECE OF BLACK FOAM CUT TO FIT IN WOUND BED. FOAM BRIDGE APPLIED SUPERIOR TO WOUND BED AND SECURED WITH DRAPING. SUCTION DEVICE ATTACHED AND SECURED. WOUND VAC TURNED ON AT 120MMHG WITH NO SIGNS OF LEAKS. PATIENT WAS IN 10/10 PAIN AND TEARFUL T/O. MEDICATED PER EMAR. ICE PACK APPLIED TO FOOT TO HELP WITH PAIN. EDUCATED PATIENT ON HOW THE WOUND VAC FUNCTIONS, HOW TO WATCH FOR LEAKS, AND HOW TO APPLY A WET TO DRY DRESSING AT HOME IN THE EVENT THE WOUND VAC/SEAL FAILS.
[2024-10-20 19:13] VITALS: BP 120/63
[2024-10-21 04:28] VITALS: BP 99/63
--- NOTE | 2024-10-21 05:02 | NUR ---
A&Ox4, VSS, able to make needs known, no new concerns, patient appears to be resting comfortably with eyes closed at this time, will cont to monitor until report given to oncoming nurse.
[2024-10-21 07:42] VITALS: BP 108/68
[2024-10-21] MEDS ORDERED: OxyCODONE HCL 5 MG TAB PO PRN (09:15)
[2024-10-21 09:56] LABS: BASOPHILS ABSOLUTE AUTO 0.08 K/mm3 (0.00-0.23); BASOPHILS PERCENT AUTO 1 % (0-2); EOSINOPHILS ABSOLUTE AUTO 0.34 K/mm3 (0.00-0.68); EOSINOPHILS PERCENT AUTO 4 % (0-6); Hematocrit 32.8 % (33.0-51.0); Hemoglobin 11.1 g/dL (11.5-16.0); IMMATURE GRAN ABSOLUTE AUTO 0.35 K/mm3 (0.00-0.10); IMMATURE GRAN PERCENT AUTO 4 % (0-1); LYMPHOCYTES ABSOLUTE AUTO 3.13 K/mm3 (0.84-5.20); LYMPHOCYTES PERCENT AUTO 36 % (21-46); MONOCYTES ABSOLUTE AUTO 1.02 K/mm3 (0.16-1.47); MONOCYTES PERCENT AUTO 12 % (4-13); Mean Corpuscular HGB 30.2 pg (26.0-34.0); Mean Corpuscular HGB Conc 33.8 g/dL (31.5-36.5); Mean Corpuscular Volume 89 fL (80-100); Mean Platelet Volume 8.4 fL (9.1-12.4); NEUTROPHILS ABSOLUTE AUTO 3.72 K/mm3 (1.96-9.15); NEUTROPHILS PERCENT AUTO 43 % (41-73); Platelet Count 485 K/mm3 (150-400); RDW Standard Deviation 42.6 fL (35.1-46.3); Red Blood Cell Count 3.67 M/mm3 (3.80-5.20); White Blood Cell Count 8.64 K/mm3 (4.00-11.30)
[2024-10-21 10:16] LABS: Albumin, Blood 2.6 g/dL (3.4-5.0); Albumin/Globulin Ratio 0.5 (0.8-1.8); Bilirubin, Total 0.4 mg/dL (0.1-1.0); Bun/Creatinine Ratio 34.7 (12.0-20.0); Creatinine, Blood 0.61 mg/dL (0.40-1.00); Globulin, Blood 4.8 g/dL (2.2-4.0); Potassium, Blood 3.9 mmol/L (3.5-5.5); Total Protein, Blood 7.4 g/dL (6.4-8.2)
[2024-10-21] MEDS ORDERED: Enoxaparin 40 MG/0.4 ML SYR SC SCH (14:00)
[2024-10-21 15:15] VITALS: BP 113/62
[2024-10-21] MEDS ORDERED: Calcium Carbon500 MG PO (16:02)
[2024-10-21] MEDS ORDERED: BENADRYL25 MG PO (16:04)
[2024-10-21] MEDS ORDERED: CORTISONE60 GM TOP (16:05)
[2024-10-21] MEDS ORDERED: OXYC5 PO (16:09)
[2024-10-21] MEDS ORDERED: VISBIOME 112.51 EACH PO (16:25)
--- NOTE | 2024-10-21 16:53 | NUR ---
pT WAS d/c WITH WOUND VAC. pT IS A&OX4 VSS AND ON RA. PT WAS GIVEN INSTRUCTION TO COME BACK TOMORROW FOR ABX TREATMENT AND INSTRUCTION ON WOUND VAC BU THIS NURSE. PT HAD NO QUESTIONS OR CONCERNS
--- NOTE | 2024-10-21 16:59 | NUR ---
REVIEWED AND AGREE WITH ALL NOTES AND ASSESSMENTS BY SHADIA MARKS.
[2024-10-22] MEDS ORDERED: OxyCODONE HCL 5 MG TAB PO PRN (09:00)
== END 2024-10-21 16:43 | disposition home or self-care (01) | DRG 854 ==
LOC: ER 16:37 → MEDS 21:59 → ERHOLD 21:59 → SURS 21:59 → MEDS 10-17 14:58
PROVIDERS: Family Medicine; Internal Medicine; Nurse Practitioner Acute Care; Physician Assistant; Podiatrist; ADMIT Student in an Organized Health Care Education/Training Program
PROC: 3E03329 Introduction of Other Anti-infective into Peripheral Vein, Percutaneous Approach (ICD-10-PCS; 2024-10-13)
PROC: 0JBR0ZZ Excision of Left Foot Subcutaneous Tissue and Fascia, Open Approach (ICD-10-PCS; principal; 2024-10-15)
PROC: 0H9NXZZ Drainage of Left Foot Skin, External Approach (ICD-10-PCS; 2024-10-15)
PROC: 0JBR0ZZ Excision of Left Foot Subcutaneous Tissue and Fascia, Open Approach (ICD-10-PCS; 2024-10-17)
PROC: 0J9R0ZZ Drainage of Left Foot Subcutaneous Tissue and Fascia, Open Approach (ICD-10-PCS; 2024-10-17)
PROC: 02HV33Z Insertion of Infusion Device into Superior Vena Cava, Percutaneous Approach (ICD-10-PCS; 2024-10-20)
DX: A41.02 Sepsis due to Methicillin resistant Staphylococcus aureus (principal); E87.20 Acidosis, unspecified; I96 Gangrene, not elsewhere classified; L03.116 Cellulitis of left lower limb; N17.9 Acute kidney failure, unspecified; L02.612 Cutaneous abscess of left foot; M86.8X7 Other osteomyelitis, ankle and foot; R65.20 Severe sepsis without septic shock; L73.9 Follicular disorder, unspecified; E87.6 Hypokalemia; D64.9 Anemia, unspecified; L72.0 Epidermal cyst; Z28.89 Immunization not carried out for other reason; Z90.710 Acquired absence of both cervix and uterus; Z79.899 Other long term (current) drug therapy
CPT/HCPCS: 36415; 73610; 73701; 73718; 80048; 80053; 80202; 82550; 82803; 82947; 82977; 83036; 83605; 83735; 85025; 85610; 85651; 86140; 87040; 87071; 87075; 87077; 87186; 87205; 99284-25; A9270; J0692; J0878; J1100; J1171; J1200; J1644; J1650; J1885; J2270; J2405; J2704; J3010; J3370; J7030; J7050; J7120; Q9967

== ENCOUNTER → 2024-10-13 | Outpatient (CLI) | payer OTHER ==
[~2024-10-13] MED LIST changes: +AMOX-CLAV 500-1 EAC5 PO; +BENADRYL25 MG PO; +CORTISONE60 GM TOP; +Calcium Carbon500 MG PO; -CeFAZolin Sodium 2,000 MG in NS 100 ML IV SCH; +HYDR1TAB94 PO; +IBUP800 PO; -Lactated Ringer's 1,000 ML IV SCH; +OMEP20ER PO; +OXYC5 PO; +VISBIOME 112.51 EACH PO
== END ==
LOC: LAB SHORT 16:20 → LAB 16:20
DX: L03.116 Cellulitis of left lower limb (principal)
CPT/HCPCS: 87070; 87077; 87147; 87186; 87205

== ENCOUNTER 2024-10-22 00:22 | Day surgery (SDC) | payer OTHER ==
[~2024-10-22 00:22] MED LIST changes: +AMOX-CLAV 500-1 EAC5 PO; +BENADRYL25 MG PO; +CORTISONE60 GM TOP; +Calcium Carbon500 MG PO; +OMEP20ER PO; +OXYC5 PO; +VISBIOME 112.51 EACH PO
[2024-10-22] MEDS ORDERED: DAPTOMYCIN IV SCH (06:00)
[2024-10-22] MEDS ORDERED: NS IV SCH (06:00)
[2024-10-22 14:50] VITALS: BP 113/69
== END 2024-10-22 15:12 | disposition home or self-care (01) ==
LOC: ATC 00:22
DX: M86.172 Other acute osteomyelitis, left ankle and foot (principal)
CPT/HCPCS: 96365; J0878

== ENCOUNTER 2024-10-23 01:58 | Day surgery (SDC) | payer OTHER ==
[2024-10-23] MEDS ORDERED: DAPTOMYCIN IV SCH (06:00)
[2024-10-23] MEDS ORDERED: NS IV SCH (06:00)
[2024-10-23 14:37] VITALS: BP 112/65
== END 2024-10-23 15:00 | disposition home or self-care (01) ==
LOC: ATC 01:58
DX: M86.172 Other acute osteomyelitis, left ankle and foot (principal)
CPT/HCPCS: 96365; J0878

== ENCOUNTER 2024-10-24 03:54 | Day surgery (SDC) | payer OTHER ==
[2024-10-24] MEDS ORDERED: DAPTOMYCIN IV SCH (06:00)
[2024-10-24] MEDS ORDERED: NS IV SCH (06:00)
[2024-10-24 14:23] VITALS: BP 99/51
== END 2024-10-24 14:45 | disposition home or self-care (01) ==
LOC: ATC 03:54
DX: M86.172 Other acute osteomyelitis, left ankle and foot (principal)
CPT/HCPCS: 96365; J0878

== ENCOUNTER 2024-10-25 06:28 | Day surgery (SDC) | payer OTHER ==
[~2024-10-25 06:28] MED LIST changes: +DAPTOMYCIN IV SCH; +NS IV SCH
[2024-10-25 14:31] VITALS: BP 116/61
== END 2024-10-25 14:51 | disposition home or self-care (01) ==
LOC: ATC 06:28
DX: M86.172 Other acute osteomyelitis, left ankle and foot (principal); B95.62 Methicillin resistant Staphylococcus aureus infection as the cause of diseases classified elsewhere; L03.116 Cellulitis of left lower limb
CPT/HCPCS: 96365; J0878

== ENCOUNTER 2024-10-26 00:09 | Day surgery (SDC) | payer OTHER ==
[~2024-10-26 00:09] MED LIST changes: -DAPTOMYCIN IV SCH; -NS IV SCH
[2024-10-26] MEDS ORDERED: Lidocaine HCl 4% Topical Soln 5 MLUDC ONE (13:06)
== END 2024-10-26 23:00 | disposition home or self-care (01) ==
LOC: WOUND 00:09
DX: T81.31XA Disruption of external operation (surgical) wound, not elsewhere classified, initial encounter (principal); M86.18 Other acute osteomyelitis, other site; I73.9 Peripheral vascular disease, unspecified; I87.2 Venous insufficiency (chronic) (peripheral)
CPT/HCPCS: A6196; A9270; G0463

== ENCOUNTER 2024-10-26 00:27 | Day surgery (SDC) | payer OTHER ==
[2024-10-26] MEDS ORDERED: DAPTOMYCIN IV SCH (06:00)
[2024-10-26] MEDS ORDERED: NS IV SCH (06:00)
[2024-10-26 14:36] VITALS: BP 110/59
== END 2024-10-26 14:57 | disposition home or self-care (01) ==
LOC: ATC 00:27
DX: T81.31XA Disruption of external operation (surgical) wound, not elsewhere classified, initial encounter (principal); M86.172 Other acute osteomyelitis, left ankle and foot; B95.62 Methicillin resistant Staphylococcus aureus infection as the cause of diseases classified elsewhere; L03.116 Cellulitis of left lower limb; M86.18 Other acute osteomyelitis, other site; I73.9 Peripheral vascular disease, unspecified; I87.2 Venous insufficiency (chronic) (peripheral)
CPT/HCPCS: 96365; A6196; A9270; G0463; J0878

== ENCOUNTER 2024-10-27 04:22 | Day surgery (SDC) | payer OTHER ==
[2024-10-27] MEDS ORDERED: NS IV SCH (06:00)
[2024-10-27] MEDS ORDERED: DAPTOMYCIN IV SCH (06:00)
[2024-10-27 11:17] VITALS: BP 107/62
== END 2024-10-27 11:40 | disposition home or self-care (01) ==
LOC: ATC 04:22
DX: M86.172 Other acute osteomyelitis, left ankle and foot (principal)
CPT/HCPCS: 96365; J0878

== ENCOUNTER 2024-10-28 03:56 | Day surgery (SDC) | payer OTHER ==
[2024-10-28] MEDS ORDERED: DAPTOMYCIN IV SCH (06:00)
[2024-10-28] MEDS ORDERED: NS IV SCH (06:00)
[2024-10-28 11:50] VITALS: BP 109/59
== END 2024-10-28 12:26 | disposition home or self-care (01) ==
LOC: ATC 03:56
DX: M86.172 Other acute osteomyelitis, left ankle and foot (principal); B95.62 Methicillin resistant Staphylococcus aureus infection as the cause of diseases classified elsewhere; L03.116 Cellulitis of left lower limb
CPT/HCPCS: 96365; J0878

== ENCOUNTER → 2024-11-06 | Outpatient (CLI) | payer OTHER ==
[2024-11-06 17:34] LABS: BASOPHILS PERCENT AUTO 1 % (0-2); EOSINOPHILS ABSOLUTE AUTO 0.82 K/mm3 (0.00-0.68); EOSINOPHILS PERCENT AUTO 11 % (0-6); Hematocrit 34.8 % (33.0-51.0); Hemoglobin 11.5 g/dL (11.5-16.0); IMMATURE GRAN ABSOLUTE AUTO 0.02 K/mm3 (0.00-0.10); IMMATURE GRAN PERCENT AUTO 0 % (0-1); LYMPHOCYTES ABSOLUTE AUTO 3.15 K/mm3 (0.84-5.20); LYMPHOCYTES PERCENT AUTO 41 % (21-46); MONOCYTES ABSOLUTE AUTO 0.53 K/mm3 (0.16-1.47); MONOCYTES PERCENT AUTO 7 % (4-13); Mean Corpuscular HGB 29.8 pg (26.0-34.0); Mean Corpuscular Volume 90 fL (80-100); Mean Platelet Volume 10.3 fL (9.1-12.4); NEUTROPHILS ABSOLUTE AUTO 3.12 K/mm3 (1.96-9.15); NEUTROPHILS PERCENT AUTO 40 % (41-73); Platelet Count 267 K/mm3 (150-400); RDW Coefficient Variation 13.8 % (11.7-14.2); RDW Standard Deviation 45.2 fL (35.1-46.3); Red Blood Cell Count 3.86 M/mm3 (3.80-5.20); White Blood Cell Count 7.74 K/mm3 (4.00-11.30)
[2024-11-06 17:36] LABS: C-REACTIVE PROTEIN, EXT RANGE <0.290 mg/dL (0.000-0.300)
[2024-11-06 17:43] LABS: Alanine Aminotransfer (ALT/SGP 39 U/L (12-78); Albumin, Blood 3.5 g/dL (3.4-5.0); Albumin/Globulin Ratio 0.9 (0.8-1.8); Alk Phos 117 U/L (50-136); Anion Gap 10 mmol/L (3-11); Aspartate Aminotrans (AST/SGOT 26 U/L (12-37); Bilirubin, Total 0.5 mg/dL (0.1-1.0); Blood Urea Nitrogen 20 mg/dL (8-24); Bun/Creatinine Ratio 32.1 (12.0-20.0); CO2, Blood 25 mmol/L (21-32); Calcium, Blood 9.5 mg/dL (8.5-10.1); Chloride, Blood 107 mmol/L (98-108); Creatinine, Blood 0.62 mg/dL (0.40-1.00); Glomerular Filtration Rate 104 (60-); Glucose, Blood 90 mg/dL (70-99); Sodium, Blood 138 mmol/L (136-145); Total Protein, Blood 7.5 g/dL (6.4-8.2)
== END ==
LOC: LAB SHORT 15:54 → LAB 15:54
PROVIDERS: Podiatrist
DX: L02.612 Cutaneous abscess of left foot (principal)
CPT/HCPCS: 80053; 82550; 85025; 85651; 86140

== ENCOUNTER → 2024-11-11 | Outpatient (CLI) | payer OTHER ==
[2024-11-11 16:18] LABS: BASOPHILS PERCENT AUTO 1 % (0-2); EOSINOPHILS ABSOLUTE AUTO 0.41 K/mm3 (0.00-0.68); EOSINOPHILS PERCENT AUTO 6 % (0-6); Hematocrit 34.2 % (33.0-51.0); Hemoglobin 11.3 g/dL (11.5-16.0); IMMATURE GRAN ABSOLUTE AUTO 0.04 K/mm3 (0.00-0.10); IMMATURE GRAN PERCENT AUTO 1 % (0-1); LYMPHOCYTES ABSOLUTE AUTO 3.52 K/mm3 (0.84-5.20); LYMPHOCYTES PERCENT AUTO 49 % (21-46); MONOCYTES ABSOLUTE AUTO 0.73 K/mm3 (0.16-1.47); MONOCYTES PERCENT AUTO 10 % (4-13); Mean Corpuscular HGB 30.1 pg (26.0-34.0); Mean Corpuscular Volume 91 fL (80-100); NEUTROPHILS ABSOLUTE AUTO 2.44 K/mm3 (1.96-9.15); NEUTROPHILS PERCENT AUTO 34 % (41-73); Platelet Count 255 K/mm3 (150-400); RDW Coefficient Variation 13.9 % (11.7-14.2); RDW Standard Deviation 46.8 fL (35.1-46.3); Red Blood Cell Count 3.75 M/mm3 (3.80-5.20); White Blood Cell Count 7.24 K/mm3 (4.00-11.30)
[2024-11-11 16:36] LABS: C-REACTIVE PROTEIN, EXT RANGE <0.290 mg/dL (0.000-0.300)
[2024-11-11 16:42] LABS: Alanine Aminotransfer (ALT/SGP 57 U/L (12-78); Albumin, Blood 3.6 g/dL (3.4-5.0); Alk Phos 112 U/L (50-136); Anion Gap 11 mmol/L (3-11); Aspartate Aminotrans (AST/SGOT 29 U/L (12-37); Bilirubin, Total 0.7 mg/dL (0.1-1.0); Blood Urea Nitrogen 21 mg/dL (8-24); Bun/Creatinine Ratio 26.4 (12.0-20.0); CO2, Blood 24 mmol/L (21-32); Calcium, Blood 9.4 mg/dL (8.5-10.1); Chloride, Blood 106 mmol/L (98-108); Globulin, Blood 3.6 g/dL (2.2-4.0); Glomerular Filtration Rate 86 (60-); Glucose, Blood 88 mg/dL (70-99); Potassium, Blood 3.8 mmol/L (3.5-5.5); Sodium, Blood 137 mmol/L (136-145); Total Protein, Blood 7.2 g/dL (6.4-8.2)
== END ==
LOC: LAB 09:40 → LAB SHORT 09:40
PROVIDERS: Podiatrist
DX: L02.612 Cutaneous abscess of left foot (principal)
CPT/HCPCS: 80053; 82550; 85025; 85651; 86140

== ENCOUNTER → 2024-11-19 | Outpatient (CLI) | payer OTHER ==
[2024-11-19 11:39] LABS: BASOPHILS PERCENT AUTO 1 % (0-2); EOSINOPHILS PERCENT AUTO 10 % (0-6); Hematocrit 35.1 % (33.0-51.0); Hemoglobin 11.6 g/dL (11.5-16.0); IMMATURE GRAN ABSOLUTE AUTO 0.02 K/mm3 (0.00-0.10); IMMATURE GRAN PERCENT AUTO 0 % (0-1); LYMPHOCYTES ABSOLUTE AUTO 3.66 K/mm3 (0.84-5.20); LYMPHOCYTES PERCENT AUTO 47 % (21-46); MONOCYTES ABSOLUTE AUTO 0.63 K/mm3 (0.16-1.47); MONOCYTES PERCENT AUTO 8 % (4-13); Mean Corpuscular HGB 29.7 pg (26.0-34.0); Mean Corpuscular Volume 90 fL (80-100); Mean Platelet Volume 10.1 fL (9.1-12.4); NEUTROPHILS ABSOLUTE AUTO 2.53 K/mm3 (1.96-9.15); NEUTROPHILS PERCENT AUTO 33 % (41-73); Platelet Count 283 K/mm3 (150-400); RDW Coefficient Variation 13.6 % (11.7-14.2); White Blood Cell Count 7.74 K/mm3 (4.00-11.30)
[2024-11-19 11:52] LABS: C-REACTIVE PROTEIN, EXT RANGE <0.290 mg/dL (0.000-0.300)
[2024-11-19 11:57] LABS: Alanine Aminotransfer (ALT/SGP 40 U/L (12-78); Albumin, Blood 3.3 g/dL (3.4-5.0); Albumin/Globulin Ratio 0.8 (0.8-1.8); Alk Phos 102 U/L (50-136); Anion Gap 12 mmol/L (3-11); Aspartate Aminotrans (AST/SGOT 19 U/L (12-37); Bilirubin, Total 0.5 mg/dL (0.1-1.0); Blood Urea Nitrogen 23 mg/dL (8-24); Bun/Creatinine Ratio 38.3 (12.0-20.0); CO2, Blood 23 mmol/L (21-32); Calcium, Blood 9.2 mg/dL (8.5-10.1); Chloride, Blood 107 mmol/L (98-108); Globulin, Blood 4.1 g/dL (2.2-4.0); Glomerular Filtration Rate 105 (60-); Glucose, Blood 99 mg/dL (70-99); Potassium, Blood 3.6 mmol/L (3.5-5.5); Sodium, Blood 138 mmol/L (136-145); Total Protein, Blood 7.4 g/dL (6.4-8.2)
== END ==
LOC: LAB SHORT 10:42 → LAB 10:42
PROVIDERS: Podiatrist
DX: L02.612 Cutaneous abscess of left foot (principal)
CPT/HCPCS: 80053; 82550; 85025; 85651; 86140

== ENCOUNTER → 2024-11-27 | Outpatient (CLI) | payer OTHER ==
[2024-11-27 16:22] LABS: BASOPHILS ABSOLUTE AUTO 0.08 K/mm3 (0.00-0.23); BASOPHILS PERCENT AUTO 1 % (0-2); EOSINOPHILS ABSOLUTE AUTO 0.49 K/mm3 (0.00-0.68); EOSINOPHILS PERCENT AUTO 7 % (0-6); Hematocrit 34.1 % (33.0-51.0); Hemoglobin 11.4 g/dL (11.5-16.0); IMMATURE GRAN ABSOLUTE AUTO 0.01 K/mm3 (0.00-0.10); IMMATURE GRAN PERCENT AUTO 0 % (0-1); LYMPHOCYTES ABSOLUTE AUTO 3.66 K/mm3 (0.84-5.20); LYMPHOCYTES PERCENT AUTO 55 % (21-46); MONOCYTES ABSOLUTE AUTO 0.47 K/mm3 (0.16-1.47); MONOCYTES PERCENT AUTO 7 % (4-13); Mean Corpuscular HGB 29.9 pg (26.0-34.0); Mean Corpuscular HGB Conc 33.4 g/dL (31.5-36.5); Mean Corpuscular Volume 90 fL (80-100); NEUTROPHILS ABSOLUTE AUTO 1.94 K/mm3 (1.96-9.15); NEUTROPHILS PERCENT AUTO 29 % (41-73); Platelet Count 242 K/mm3 (150-400); RDW Coefficient Variation 13.4 % (11.7-14.2); RDW Standard Deviation 44.2 fL (35.1-46.3); Red Blood Cell Count 3.81 M/mm3 (3.80-5.20); White Blood Cell Count 6.65 K/mm3 (4.00-11.30)
[2024-11-27 16:49] LABS: Alanine Aminotransfer (ALT/SGP 28 U/L (12-78); Albumin, Blood 3.5 g/dL (3.4-5.0); Alk Phos 90 U/L (50-136); Anion Gap 11 mmol/L (3-11); Aspartate Aminotrans (AST/SGOT 19 U/L (12-37); Bilirubin, Total 0.6 mg/dL (0.1-1.0); Blood Urea Nitrogen 14 mg/dL (8-24); Bun/Creatinine Ratio 25.3 (12.0-20.0); C-REACTIVE PROTEIN, EXT RANGE <0.290 mg/dL (0.000-0.300); CO2, Blood 26 mmol/L (21-32); Calcium, Blood 8.9 mg/dL (8.5-10.1); Chloride, Blood 106 mmol/L (98-108); Creatinine, Blood 0.55 mg/dL (0.40-1.00); Globulin, Blood 3.5 g/dL (2.2-4.0); Glomerular Filtration Rate 107 (60-); Glucose, Blood 96 mg/dL (70-99); Potassium, Blood 3.8 mmol/L (3.5-5.5); Sodium, Blood 139 mmol/L (136-145)
== END ==
LOC: LAB 15:00 → LAB SHORT 15:00
PROVIDERS: Podiatrist
DX: L02.612 Cutaneous abscess of left foot (principal); L03.116 Cellulitis of left lower limb
CPT/HCPCS: 80053; 82550; 85025; 85651; 86140

== ENCOUNTER → 2024-12-04 | Outpatient (CLI) | payer OTHER ==
[2024-12-04 19:43] LABS: BASOPHILS ABSOLUTE AUTO 0.07 K/mm3 (0.00-0.23); BASOPHILS PERCENT AUTO 1 % (0-2); EOSINOPHILS ABSOLUTE AUTO 0.37 K/mm3 (0.00-0.68); EOSINOPHILS PERCENT AUTO 5 % (0-6); Hematocrit 34.7 % (33.0-51.0); Hemoglobin 11.5 g/dL (11.5-16.0); IMMATURE GRAN ABSOLUTE AUTO 0.02 K/mm3 (0.00-0.10); IMMATURE GRAN PERCENT AUTO 0 % (0-1); LYMPHOCYTES ABSOLUTE AUTO 3.92 K/mm3 (0.84-5.20); LYMPHOCYTES PERCENT AUTO 48 % (21-46); MONOCYTES ABSOLUTE AUTO 0.53 K/mm3 (0.16-1.47); MONOCYTES PERCENT AUTO 6 % (4-13); Mean Corpuscular HGB 29.9 pg (26.0-34.0); Mean Corpuscular HGB Conc 33.1 g/dL (31.5-36.5); Mean Corpuscular Volume 90 fL (80-100); Mean Platelet Volume 10.6 fL (9.1-12.4); NEUTROPHILS ABSOLUTE AUTO 3.33 K/mm3 (1.96-9.15); NEUTROPHILS PERCENT AUTO 41 % (41-73); Platelet Count 292 K/mm3 (150-400); RDW Coefficient Variation 13.4 % (11.7-14.2); RDW Standard Deviation 44.5 fL (35.1-46.3); Red Blood Cell Count 3.85 M/mm3 (3.80-5.20); White Blood Cell Count 8.24 K/mm3 (4.00-11.30)
[2024-12-04 19:46] LABS: C-REACTIVE PROTEIN, EXT RANGE <0.290 mg/dL (0.000-0.300)
[2024-12-04 19:54] LABS: Alanine Aminotransfer (ALT/SGP 44 U/L (12-78); Albumin, Blood 3.3 g/dL (3.4-5.0); Albumin/Globulin Ratio 0.8 (0.8-1.8); Alk Phos 105 U/L (50-136); Anion Gap 9 mmol/L (3-11); Aspartate Aminotrans (AST/SGOT 29 U/L (12-37); Bilirubin, Total 0.4 mg/dL (0.1-1.0); Blood Urea Nitrogen 15 mg/dL (8-24); Bun/Creatinine Ratio 22.2 (12.0-20.0); CO2, Blood 25 mmol/L (21-32); Calcium, Blood 9.4 mg/dL (8.5-10.1); Chloride, Blood 107 mmol/L (98-108); Creatinine, Blood 0.68 mg/dL (0.40-1.00); Globulin, Blood 4.1 g/dL (2.2-4.0); Glomerular Filtration Rate 102 (60-); Glucose, Blood 143 mg/dL (70-99); Potassium, Blood 3.5 mmol/L (3.5-5.5); Sodium, Blood 137 mmol/L (136-145); Total Protein, Blood 7.4 g/dL (6.4-8.2)
== END ==
LOC: LAB SHORT 17:46 → LAB 17:46
PROVIDERS: Podiatrist
DX: L02.612 Cutaneous abscess of left foot (principal); L03.116 Cellulitis of left lower limb; M86.172 Other acute osteomyelitis, left ankle and foot
CPT/HCPCS: 80053; 82550; 85025; 85651; 86140

== ENCOUNTER → 2025-03-18 | Outpatient (CLI) | payer OTHER | LOC: LAB 18:46 → LAB SHORT 18:46 | DX: L02.612 Cutaneous abscess of left foot (principal) | CPT/HCPCS: 87070; 87071; 87075; 87077; 87186; 87205 ==

== ENCOUNTER 2025-03-19 11:43 | Day surgery (SDC) | payer OTHER ==
[~2025-03-19] VITALS: Ht 162.6 cm; Wt 75.9 kg
[2025-03-19 15:15] VITALS: BP 124/81
[2025-03-19] MEDS ORDERED: DAPTOmycin 700 MG in NS 50 ML IV SCH (16:15)
== END 2025-03-19 17:35 | disposition home or self-care (01) ==
LOC: ATC 11:43
DX: L02.612 Cutaneous abscess of left foot (principal); L03.116 Cellulitis of left lower limb; E11.9 Type 2 diabetes mellitus without complications; E78.00 Pure hypercholesterolemia, unspecified; M19.90 Unspecified osteoarthritis, unspecified site
CPT/HCPCS: 82565; 96365; J0878

== ENCOUNTER 2025-03-20 04:02 | Day surgery (SDC) | payer OTHER ==
[2025-03-20] MEDS ORDERED: DAPTOmycin 700 MG in NS 50 ML IV SCH (06:00)
[2025-03-20 15:25] VITALS: BP 127/67
== END 2025-03-20 15:55 | disposition home or self-care (01) ==
LOC: ATC 04:02
DX: L02.612 Cutaneous abscess of left foot (principal); L03.116 Cellulitis of left lower limb; M1A.0720 Idiopathic chronic gout, left ankle and foot, without tophus (tophi); R73.03 Prediabetes
CPT/HCPCS: 96365; J0878

== ENCOUNTER 2025-03-21 00:35 | Day surgery (SDC) | payer OTHER ==
[2025-03-21] MEDS ORDERED: DAPTOmycin 700 MG in NS 50 ML IV SCH (06:00)
[2025-03-21 15:28] VITALS: BP 128/67
== END 2025-03-21 15:50 | disposition home or self-care (01) ==
LOC: ATC 00:35
DX: L02.612 Cutaneous abscess of left foot (principal); L03.116 Cellulitis of left lower limb; L97.522 Non-pressure chronic ulcer of other part of left foot with fat layer exposed; R73.03 Prediabetes; Z79.899 Other long term (current) drug therapy
CPT/HCPCS: 96365; J0878

== ENCOUNTER 2025-03-22 08:41 | Day surgery (SDC) | payer OTHER ==
[~2025-03-22 08:41] MED LIST changes: +DAPTOmycin 600 MG in NS 50 ML IV SCH
[2025-03-22 15:53] VITALS: BP 122/82
== END 2025-03-22 16:38 | disposition home or self-care (01) ==
LOC: ATC 08:41
DX: L02.612 Cutaneous abscess of left foot (principal); L03.116 Cellulitis of left lower limb; R73.03 Prediabetes; M1A.0720 Idiopathic chronic gout, left ankle and foot, without tophus (tophi); Z79.899 Other long term (current) drug therapy
CPT/HCPCS: 96365; J0878

== ENCOUNTER → 2025-03-22 | Outpatient (CLI) | payer OTHER | LOC: LAB SHORT 08:14 → LAB 08:14 | DX: M86.172 Other acute osteomyelitis, left ankle and foot (principal); L03.116 Cellulitis of left lower limb; L02.612 Cutaneous abscess of left foot | CPT/HCPCS: 88307 ==

== ENCOUNTER 2025-03-23 03:30 | Day surgery (SDC) | payer OTHER ==
[~2025-03-23 03:30] MED LIST changes: -DAPTOmycin 600 MG in NS 50 ML IV SCH
[2025-03-23] MEDS ORDERED: DAPTOmycin 600 MG in NS 50 ML IV SCH (06:00)
[2025-03-23 15:40] VITALS: BP 119/66
== END 2025-03-23 16:06 | disposition home or self-care (01) ==
LOC: ATC 03:30
DX: L02.612 Cutaneous abscess of left foot (principal); L03.116 Cellulitis of left lower limb; R73.03 Prediabetes; Z79.899 Other long term (current) drug therapy
CPT/HCPCS: 96365; J0878

== ENCOUNTER → 2025-05-25 | Outpatient (CLI) | payer OTHER | LOC: LAB SHORT 08:01 → LAB 08:01 | DX: B35.1 Tinea unguium (principal); L60.2 Onychogryphosis | CPT/HCPCS: 88305; 88312 ==

== ENCOUNTER → 2025-10-05 | Outpatient (CLI) | payer OTHER | LOC: LAB SHORT 10:10 → LAB 10:10 | DX: N39.0 Urinary tract infection, site not specified (principal) | CPT/HCPCS: 87077; 87086; 87186 ==